=== PATIENT | male | born 1980 | race Caucasian/White ===

== ENCOUNTER 2019-05-07 21:51 | Emergency (ER) | payer OTHER ==
[2019-05-07] MEDS ORDERED: Lidocaine 1% 20 ML MDV INJECT ONE (21:52)
[2019-05-07] MEDS ORDERED: Diphtheria,Pertussis(Acell),Tetanus Vaccine 0.5 ML SDV IM ONE (22:17)
--- NOTE | 2019-05-07 22:21 | EDM.PDOC ---
ED HPI GENERAL MEDICAL PROBLEM - General Chief Complaint: Laceration Stated Complaint: FISHHOOK RIGHT 4TH FINGER Time Seen by Provider: 05/07/19 22:10 Source of Information: Reports: Patient History Limitations: Reports: No Limitations - History of Present Illness INITIAL COMMENTS - FREE TEXT/NARRATIVE: Alberto arrives today with treble fish hook in right ring finger, unable to remove so presents here. DT not up to date. Patient denies any other concerns. 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 ED EXAM, SKIN/RASH Exam: See Below Exam Limited By: No Limitations General Appearance: Alert, WD/WN, No Apparent Distress Head: Atraumatic Neck: Normal Inspection Respiratory/Chest: No Respiratory Distress Cardiovascular: Regular Rate, Rhythm Extremities: Normal Inspection, Normal Range of Motion Neurological: Alert, Oriented, CN II-XII Intact Psychiatric: Normal Affect, Normal Mood Skin: Warm, Dry, Other (treble hook, one hook in right ring finger/pad) Course - Vital Signs Last Recorded V/S: Last Vital Signs Temp 36.1 C 05/07/19 22:05 Pulse 80 05/07/19 22:05 Resp 16 05/07/19 22:05 BP 136/95 H 05/07/19 22:05 Pulse Ox 99 05/07/19 22:05 Alberto is a 38 year old male, presents to the Ed today with fish hook in right ring finger. Please refer to HPI and focused exam. Patient injected with 2 ml' s 1% lidocaine, hook pushed through and then cut. Patient washed finger well with soap and water. DT updated, wound care discussed as well as reasons to return to the ED. Patient agreeable and discharged in stable condition. - Orders/Labs/Meds Orders: Active Orders 24 hr Category Date Time Status Vaccines to be Administered [RC] PER UNIT ROUTINE Care 05/07/19 22:17 Ordered Diphth,Pertuss(Acell),Tet Vac [Adacel] Med 05/07/19 22:17 Once 0.5 ml IM .ONCE ONE Medication Orders Diphtheria/Tetanus/Acell Pertussis (Adacel) 0.5 ml IM .ONCE ONE Stop: 05/07/19 22:18 Meds: Medications Generic Name Dose Route Start Last Admin Trade Name Freq PRN Reason Stop Dose Admin Diphtheria/Tetanus/Acell Pertussis 0.5 ml 05/07/19 22:17 Adacel IM 05/07/19 22:18 .ONCE ONE Discontinued Medications Generic Name Dose Route Start Last Admin Trade Name Freq PRN Reason Stop Dose Admin Lidocaine HCl 20 ml 05/07/19 21:52 05/07/19 22:07 Xylocaine 1% INJECT 05/07/19 21:53 20 ml ONETIME ONE Administration Departure - Departure Time of Disposition: 22:35 Disposition: Home, Self-Care 01 Condition: Good Clinical Impression: Fish hook injury of finger of right hand Qualifiers: Encounter type: initial encounter Qualified Code(s): S69.91XA - Unspecified injury of right wrist, hand and finger(s), initial encounter - Discharge Information Instructions: Puncture Wound, [id number] Referrals: PCP,None [Primary Care Provider] - Additional Instructions: Keep clean and dry Return as needed for any signs of infection, redness, swelling or drainage. - My Orders Last 24 Hours: My Active Orders 05/07/19 22:17 Vaccines to be Administered [RC] PER UNIT ROUTINE Diphth,Pertuss(Acell),Tet Vac [Adacel] 0.5 ml IM .ONCE ONE - Assessment/Plan Last 24 Hours: My Active Orders 05/07/19 22:17 Vaccines to be Administered [RC] PER UNIT ROUTINE Diphth,Pertuss(Acell),Tet Vac [Adacel] 0.5 ml IM .ONCE ONE
== END 2019-05-07 22:29 | disposition home or self-care (01) ==
LOC: JP.ED 21:51
DX: S60.454A Superficial foreign body of right ring finger, initial encounter (principal); Z23 Encounter for immunization; W45.8XXA Other foreign body or object entering through skin, initial encounter
CPT/HCPCS: 90471; 90715; 99282; J2001